=== PATIENT | male | born 1950 | race African-American/Black ===

== ENCOUNTER → 2020-12-08 10:34 | Outpatient (BNVA) | payer MEDICARE, MEDICAID, SELFPAY | PROVIDERS: PCP Internal Medicine Nephrology; Visit Provider Urology | DX: N40.0 Benign prostatic hyperplasia without lower urinary tract symptoms (principal); N52.01 Erectile dysfunction due to arterial insufficiency | CPT/HCPCS: 51798; 99212 ==

== ENCOUNTER → 2021-12-08 11:16 | Outpatient (BNVA) | payer MEDICARE, MEDICAID, SELFPAY | PROVIDERS: PCP Internal Medicine Nephrology; Visit Provider Urology | DX: N40.0 Benign prostatic hyperplasia without lower urinary tract symptoms (principal); N52.01 Erectile dysfunction due to arterial insufficiency | CPT/HCPCS: 51798; 99212 ==

== ENCOUNTER → 2022-04-12 11:14 | Outpatient (BNVA) | payer MEDICARE, SELFPAY | PROVIDERS: PCP Internal Medicine; Visit Provider Urology | DX: N40.0 Benign prostatic hyperplasia without lower urinary tract symptoms (principal); N52.01 Erectile dysfunction due to arterial insufficiency; Z79.899 Other long term (current) drug therapy | CPT/HCPCS: 51798; 99212 ==

== ENCOUNTER → 2022-10-23 09:39 | Outpatient (BNVA) | payer MEDICARE, SELFPAY | PROVIDERS: Visit Provider Nurse Practitioner Family | DX: N40.1 Benign prostatic hyperplasia with lower urinary tract symptoms (principal); R33.8 Other retention of urine; N52.01 Erectile dysfunction due to arterial insufficiency; Z79.899 Other long term (current) drug therapy | CPT/HCPCS: 51798; 99212 ==

== ENCOUNTER 2023-01-07 11:12 | Outpatient (AMB) | payer MEDICARE, SELFPAY ==
--- NOTE | 2023-01-07 11:24 | MHC.OFFVIS ---
Intake Intake Visit Reasons: 6w/PVR Intake Note: Patient is present for follow up PVR/Retention/BPH/Erectile Dysfunction Urology Medications: finasteride, sildenafil, tamsulosin Blood Thinner: none PVR: 109ml's Director Export Required: No Accompanied by: Self / Same As Patient Allergies No Known Allergies Allergy (Verified 10/23/22 10:01) Medication List - Last Reconciled 01/07/23 by WENDI OrtegaP- amlodipine 10 mg PO DAILY atorvastatin 40 mg PO DAILY empagliflozin (Jardiance) 10 mg PO DAILY finasteride 5 mg PO DAILY 90 days fluticasone propionate 50 mcg/actuation 1 spray intranasal BID hydralazine 10 mg PO BID lisinopril 10 mg PO DAILY sildenafil 100 mg PO DAILY PRN 90 days tamsulosin 0.4 mg PO BEDTIME 90 days HPI HPI Comments History of Present Illness Details Thaddeus is a very pleasant 72 year old male patient of Dr Mcfadden. He has a past medical history of GERD and hyperlipidemia. He presents to the office today for follow-up of his erectile dysfunction, BPH, and elevated PSA. In discussion with the patient today reports to be doing and feeling well. He reports compliance with finasteride 5 mg daily when Flomax 0.4 mg daily. In office urinalysis results reviewed with the patient today. PVR 109 mL. Discussed improvement in postvoid residual since last office visit which was noted to be approximately 215 mL. When asked he denies any urinary issues or concerns at this time. He reports to be happy with his current voiding parameters. Discussed affects and potential causes for incomplete bladder emptying. Patient otherwise denies urinary urgency, urinary frequency, incontinence, nocturia, hematuria, dysuria, foul smelling urine, changes to urinary stream, flank pain, fever, and or chills. He reports sildenafil to be working well for his erectile dysfunction and is requesting a refill. When asked he reports be happy with his current voiding parameters on mg of finasteride daily and Flomax 0.4 mg daily. He otherwise offers no issues or concerns at this time. Erectile dysfunction:? Sildenafil 100 mg is useful Discussed side effect of headache ?This was discussed ?Plan for yearly follow-up ?PSA 2017 3.6, 11/15 4.1, 11/16 4.2, 8/22 5.7, 04/19 3.3 24%, 10/19 3.0 ? Current treatment includes?Cialis/tadalafil.? Treatment side effects include?none.? Prior therapies include?oral medications.? At this time he experiences erections?are partial and adequate for vaginal penetration, that last until ejaculation, GEOVANNA 8-11 Moderate ED.? Nocturnal erections?do not occur.? Currently they are?in a stable relationship.? Associated problems? hypertension ?No ? diabetes ?No ? dyslipidemia ?Yes ? depression ?No ? stress ?No ? decreased libido ?No ? pelvic surgery ?No ? Overall he is satisfied with the current management.? [facility] Medical History Hyperlipidemia GERD (gastroesophageal reflux disease) Benign prostatic hyperplasia without lower urinary tract symptoms Surgical History History of surgery Review of Systems Const All systems reviewed & are unremarkable except as noted in HPI and below Reports as per HPI Eyes Reports no additional complaints ENT Reports no additional complaints Card Reports as per HPI Resp Reports no additional complaints GI Reports as per HPI Reports as per HPI Neuro Reports no additional complaints Psych Reports no additional complaints Endo Reports no additional complaints Alok/Lymph Reports no additional complaints Aller/Immun Reports no additional complaints Physical Exam Const General: cooperative, healthy appearing, comfortable, no acute distress, well developed, alert and awake Orientation/consciousness: patient oriented x3 Limitations: no limitations HEENT Head: Yes normal to inspection, Yes normocephalic and Yes atraumatic Ears: hearing grossly normal bilaterally Eyes General: appearance normal, both eyes and all related structures Neck Neck: Yes normal visual inspection and Yes trachea midline Chest Chest palpation & inspection: normal inspection of the chest Resp Effort & Inspection: normal respiratory effort and able to speak in complete sentences Cardio Rate: regular rate GI Inspection: Yes normal to inspection General: Yes no CVA tenderness Back/Spine/Pelvis Back: no CVA tenderness Skin General skin exam: no rashes or lesions noted Neuro General: patient oriented x3 Extrem General: Yes normal to inspection Psych Appearance: grossly normal and well kempt Mental Status: mental status grossly normal Speech and movement: Normal speech and movement present and Clear speech present Affect: normal affect Attitude: cooperative Thought process: Normal thought process present Thought content: Normal thought content present Insight: Fair insight present (Psych) Judgement: Fair judgement present (Psych) Office Procedures Post Void Residual Post Residual Void Post Void Residual (PVR): 109 56456-Pijv Void Residual by ultrasound Results AMB Urinalysis, Automated UA Leukoctes 0 Cheryl/uL Last Edit by Gwen Koehlersana on 01/07/23 12:07 UA Nitrite Last Edit by [facility] Koehlersana on 01/07/23 12:07 UA Urobilinogen 0.2 mg/dL Last Edit by Gwen Kimbrough on 01/07/23 12:07 UA Protein 30 mg/dL Last Edit by Gwen KoehlerShipster on 01/07/23 12:07 UA pH 6.0 Last Edit by Viralica [employer]akia[employer] on 01/07/23 12:07 UA Blood 0 Edwin/uL Last Edit by Texerebarbara Koehlerasna on 01/07/23 12:07 UA Specific [place] 1.015 Last Edit by [facility] on 01/07/23 12:07 UA Ketone Negative Last Edit by Viralica Zakiasana on 01/07/23 12:07 UA Bilirubin 0 mg/dL Last Edit by Viralica ZakiaShipster on 01/07/23 12:07 UA Glucose 500 mg/dL Last Edit by [facility] on 01/07/23 12:07 Results Reviewed Results Reviewed: Laboratory Last Values Urine pH (Auto) 6.0 01/07/23 11: Specific [place] (Auto) 1.015 01/07/23 11:27 Urine Protein (Auto) 30 mg/dL 01/07/23 11:27 Glucose (UA)(Auto) 500 mg/dL 01/07/23 11:27 Urine Ketones (Auto) Negative 01/07/23 11:27 Urine Blood (Auto) 0 Edwin/uL 01/07/23 11:27 Urine Bilirubin (Auto) 0 mg/dL 01/07/23 11:27 Urine Urobilinogen (Auto) 0.2 mg/dL 01/07/23 11:27 Leukocyte Esterase (Auto) 0 Cheryl/uL 01/07/23 11:27 Assessment & Plan Assessment & Plan (1) Incomplete bladder emptying: Code(s): R33.9 - Retention of urine, unspecified (2) Benign prostatic hyperplasia without lower urinary tract symptoms: Code(s): N40.0 - Benign prostatic hyperplasia without lower urinary tract symptoms (3) Erectile dysfunction due to arterial insufficiency: Code(s): N52.01 - Erectile dysfunction due to arterial insufficiency Plan In office urinalysis results reviewed with the patient today; as noted above. PVR 104 mL; improving since last office visit Continue finasteride 5 mg daily. Continue Flomax 0.4 mg daily. Discussed at length potential causes for incomplete bladder emptying. Patient reports be happy with current voiding parameters on 0.4 mg of Flomax daily and 5 mg of finasteride daily. Patient denies any bothersome urinary issues or concerns at this time. Refill provided on Sildenafil Will obtain PSA in 6 months Follow-up in 6 months with lab to be completed prior; or sooner with any issues, concerns, and or questions. Orders: Orders AMB Urinalysis Automated Today Z13.9 - Encounter for screening, unspecified US retroperitoneal comp Today N40.0 - Benign prostatic hyperplasia without lower urinary tract symptoms, R33.9 - Retention of urine, unspecified PSA,Total (Free>4and<10) 6 Months N40.0 - Benign prostatic hyperplasia without lower urinary tract symptoms AMB Post Void Residual by ultrasound Today R33.9 - Retention of urine, unspecified Medications: Changed From tamsulosin 0.4 mg PO BEDTIME 30 days 30 caps 1RF N40.1 - Benign prostatic hyperplasia with lower urinary tract symptoms, R35.1 - Nocturia To tamsulosin 0.4 mg PO BEDTIME 90 days 90 caps 2RF N40.1 - Benign prostatic hyperplasia with lower urinary tract symptoms, R35.1 - Nocturia Refilled sildenafil May take up to 2 tablets, administer 60 minutes before intended activity [id number] [facility] [id number] Member [id number] 100 mg PO DAILY 90 days PRN 30 tabs 5RF sexual activity N52.01 - Erectile dysfunction due to arterial insufficiency finasteride 5 mg PO DAILY 90 days 90 tabs 3RF N13.8 - Other obstructive and reflux uropathy, N40.0 - Benign prostatic hyperplasia without lower urinary tract symptoms, N40.1 - Benign prostatic hyperplasia with lower urinary tract symptoms, R33.9 - Retention of urine, unspecified Patient Instructions: The patient had an opportunity to ask questions regarding the treatment plan. All questions were answered. Physical exam, labs, and imaging were discussed and reviewed in detail. As well as risks, benefits, and discussion of treatment choices. No major barriers to understanding were identified. The patient expressed understanding and agreement with the above treatment plan. The patient was made aware they should contact our office by phone for worsening of their current condition, the appearance of new symptoms, or with any questions or concerns. Compliance is encouraged with any medications and follow up testing that is ordered. It is a privilege to be allowed the opportunity to participate in? your urological care.? Again, if you have any questions or concerns If you have any questions or concerns please do not hesitate to contact me. The office is [phone]. This note is constructed using voice recognition software. While every effort has been made to ensure accuracy treatment counselor errors may have been included. Yours sincerely, AUGUSTIN Ortega Coding Level of Care Code Est Pt Level 3 (35608) Diagnoses Incomplete bladder emptying R33.9 Benign prostatic hyperplasia without lower urinary tract symptoms N40.0 Erectile dysfunction due to arterial insufficiency N52.01 CPT Codes Post Residual Void - PVR CPT Code: 31591-Brke Void Residual by ultrasound ([id number])
== END 2023-01-07 12:18 | disposition home or self-care (01) ==
PROVIDERS: PCP Internal Medicine; Visit Provider Nurse Practitioner Family
DX: R33.9 Retention of urine, unspecified (principal); N40.0 Benign prostatic hyperplasia without lower urinary tract symptoms; N52.01 Erectile dysfunction due to arterial insufficiency
CPT/HCPCS: 99213

== ENCOUNTER → 2023-01-07 11:12 | Outpatient (BNVA) | payer MEDICARE, SELFPAY | PROVIDERS: PCP Internal Medicine; Visit Provider Nurse Practitioner Family | DX: N40.1 Benign prostatic hyperplasia with lower urinary tract symptoms (principal); R33.8 Other retention of urine; N52.01 Erectile dysfunction due to arterial insufficiency; Z79.899 Other long term (current) drug therapy | CPT/HCPCS: 51798; 81003; 99212 ==

== ENCOUNTER 2024-01-09 11:41 | Outpatient (AMB) | payer MEDICARE, SELFPAY ==
--- NOTE | 2024-01-09 11:46 | MHC.OFFVIS ---
Intake Visit Reasons: follow up/U/S/PSA Intake Note: Patient is present for follow up PVR/Retention/BPH/Erectile Dysfunction Urology Medications: finasteride, sildenafil, tamsulosin Blood Thinner: none PVR: 175ml's [employer] Required: No Accompanied by: Self / Same As Patient Allergies No Known Allergies Allergy (Verified 01/09/24 19:09) Medication List - Last Reconciled 01/09/24 by WENDI OrtegaP- amlodipine 10 mg PO DAILY atorvastatin 40 mg PO DAILY empagliflozin (Jardiance) 10 mg PO DAILY finasteride 5 mg PO DAILY 90 days fluticasone propionate 50 mcg/actuation 1 spray intranasal BID hydralazine 10 mg PO BID lisinopril 10 mg PO DAILY omeprazole 20 mg PO DAILY sildenafil 100 mg PO DAILY PRN 90 days tamsulosin 0.4 mg PO BEDTIME 90 days HPI Comments Details: Thaddeus is a very pleasant 73 year old male patient of Dr Alfaro. He has a past medical history of GERD and hyperlipidemia. He presents to the office today for follow-up of his erectile dysfunction, BPH, and elevated PSA. In discussion with the patient today reports to be doing and feeling well. He discusses having followed up with his PCP and will be following up with [facility] as this is closer to his home and referral was submitted. He currently denies any bothersome urinary issues or concerns. He reports compliance with finasteride 5 mg daily when Flomax 0.4 mg daily. In office urinalysis results reviewed with the patient today. PVR 175 mL. We discussed causes and affects of incomplete bladder emptying. When asked he denies urinary urgency, urinary frequency, incontinence, nocturia, hematuria, dysuria, foul smelling urine, changes to urinary stream, flank pain, fever, and or chills. He reports sildenafil to be working well for his erectile dysfunction and is requesting a refill. When asked he reports be happy with his current voiding parameters on mg of finasteride daily and Flomax 0.4 mg daily. Recent PSA results reviewed with the patient today 08/20 3.4. He otherwise offers no issues or concerns at this time. Erectile dysfunction:? Sildenafil 100 mg is useful Discussed side effect of headache ?This was discussed ?Plan for yearly follow-up ?PSA 2017 3.6, 11/15 4.1, 11/16 4.2, 12/18 5.7, 04/19 3.3 24%, 10/19 3.0 ? Current treatment includes?Cialis/tadalafil.? Treatment side effects include?none.? Prior therapies include?oral medications.? At this time he experiences erections?are partial and adequate for vaginal penetration, that last until ejaculation, GEOVANNA 8-11 Moderate ED.? Nocturnal erections?do not occur.? Currently they are?in a stable relationship.? Associated problems? hypertension ?No ? diabetes ?No ? dyslipidemia ?Yes ? depression ?No ? stress ?No ? decreased libido ?No ? pelvic surgery ?No ? Overall he is satisfied with the current management.? [facility] Medical History Hyperlipidemia GERD (gastroesophageal reflux disease) Benign prostatic hyperplasia without lower urinary tract symptoms Surgical History History of surgery Review of Systems Const All systems reviewed & are unremarkable except as noted in HPI and below Reports as per HPI Eyes Reports no additional complaints ENT Reports no additional complaints Card Reports as per HPI Resp Reports no additional complaints GI Reports as per HPI Reports as per HPI Neuro Reports no additional complaints Psych Reports no additional complaints Endo Reports no additional complaints Alok/Lymph Reports no additional complaints Aller/Immun Reports no additional complaints Physical Exam Const General: cooperative, healthy appearing, comfortable, no acute distress, well developed, alert and awake Orientation/consciousness: patient oriented x3 Limitations: no limitations HEENT Head: Yes normal to inspection, Yes normocephalic and Yes atraumatic Ears: hearing grossly normal bilaterally Eyes General: appearance normal, both eyes and all related structures Neck Neck: Yes normal visual inspection and Yes trachea midline Chest Chest palpation & inspection: normal inspection of the chest Resp Effort & Inspection: normal respiratory effort and able to speak in complete sentences Cardio Rate: regular rate GI Inspection: Yes normal to inspection General: Yes no CVA tenderness Back/Spine/Pelvis Back: no CVA tenderness Skin General skin exam: no rashes or lesions noted Neuro General: patient oriented x3 Extrem General: Yes normal to inspection Psych Appearance: grossly normal and well kempt Mental Status: mental status grossly normal Speech and movement: Normal speech and movement present and Clear speech present Affect: normal affect Attitude: cooperative Thought process: Normal thought process present Thought content: Normal thought content present Insight: Fair insight present (Psych) Judgement: Fair judgement present (Psych) Office Procedures Post Void Residual Post Residual Void Post Void Residual (PVR): 175 40659-Noml Void Residual by ultrasound Results AMB Urinalysis, Automated UA Leukoctes 0 Cheryl/uL Last Edit by Gwen Kimbrough on 01/09/24 12:03 UA Nitrite Last Edit by Gwen Kimbrough on 01/09/24 12:03 UA Urobilinogen 0.2 mg/dL Last Edit by Gwen Kimbrough on 01/09/24 12:03 UA Protein 15 mg/dL Last Edit by [employer] [facility] on 01/09/24 12:03 UA pH 7.5 Last Edit by Gwen Kimbrough on 01/09/24 12:03 UA Blood 0 Edwin/uL Last Edit by Gwen [facility] on 01/09/24 12:03 UA Specific [place] 1.010 Last Edit by [employer] [facility] on 01/09/24 12:03 UA Ketone Negative Last Edit by Gwen Kimbrough on 01/09/24 12:03 UA Bilirubin 0 mg/dL Last Edit by [employer] [facility] on 01/09/24 12:03 UA Glucose 500 mg/dL Last Edit by [employer] on 01/09/24 12:03 Results Reviewed Results Reviewed: Laboratory Last Values Urine pH (Auto) 7.5 01/09/24 12:01 Specific [place] (Auto) 1.010 01/09/24 12:01 Urine Protein (Auto) 15 mg/dL 01/09/24 12:01 Glucose (UA)(Auto) 500 mg/dL 01/09/24 12:01 Urine Ketones (Auto) Negative 01/09/24 12:01 Urine Blood (Auto) 0 Edwin/uL 01/09/24 12:01 Urine Bilirubin (Auto) 0 mg/dL 01/09/24 12:01 Urine Urobilinogen (Auto) 0.2 mg/dL 01/09/24 12:01 Leukocyte Esterase (Auto) 0 Cheryl/uL 01/09/24 12:01 Assessment & Plan Assessment & Plan (1) Benign prostatic hyperplasia without lower urinary tract symptoms: Code(s): N40.0 - Benign prostatic hyperplasia without lower urinary tract symptoms Category: Medical (2) Erectile dysfunction due to arterial insufficiency: Code(s): N52.01 - Erectile dysfunction due to arterial insufficiency Category: Medical (3) Incomplete bladder emptying: Code(s): R33.9 - Retention of urine, unspecified Category: Medical Plan In office urinalysis results reviewed with the patient today; as noted above. PVR 170 mL. Discussed causes and affects of incomplete bladder emptying. Discussed increase in Flomax verses trial of other alpha-mela to assist with incomplete bladder emptying verses lifestyle modifications Patient currently does not feel any bothersome urinary issues or concerns. He reports be happy with current voiding parameters. Discussed attempting to sit when voiding to relax pelvis to assist with emptying bladder. He denies any bothersome urinary issues or concerns. Refills provided. Discussed signing medical release form to send urology records to [facility] for continuity of care. Recent PSA results reviewed with the patient today; as noted above. Follow-up with new urologist as planned Orders: Orders AMB Urinalysis Automated 01/09/24 Z13.9 - Encounter for screening, unspecified AMB Post Void Residual by ultrasound 01/09/24 R33.9 - Retention of urine, unspecified Medications: Changed From sildenafil May take up to 2 tablets, administer 60 minutes before intended activity [id number] [facility] [id number] Member [id number] 100 mg PO DAILY 90 days PRN 30 tabs 5RF sexual activity N52.01 - Erectile dysfunction due to arterial insufficiency To sildenafil administer 60 minutes before intended activity [id number] [facility] [id number] Member [id number] 100 mg PO .PRN 90 days PRN 30 tabs 5RF sexual activity N52.01 - Erectile dysfunction due to arterial insufficiency Refilled finasteride 5 mg PO DAILY 90 days 90 tabs 3RF N13.8 - Other obstructive and reflux uropathy, N40.0 - Benign prostatic hyperplasia without lower urinary tract symptoms, N40.1 - Benign prostatic hyperplasia with lower urinary tract symptoms, R33.9 - Retention of urine, unspecified tamsulosin 0.4 mg PO BEDTIME 90 days 90 caps 2RF N40.1 - Benign prostatic hyperplasia with lower urinary tract symptoms, R35.1 - Nocturia Patient Instructions: The patient had an opportunity to ask questions regarding the treatment plan. All questions were answered. Physical exam, labs, and imaging were discussed and reviewed in detail. As well as risks, benefits, and discussion of treatment choices. No major barriers to understanding were identified. The patient expressed understanding and agreement with the above treatment plan. The patient was made aware they should contact our office by phone for worsening of their current condition, the appearance of new symptoms, or with any questions or concerns. Compliance is encouraged with any medications and follow up testing that is ordered. It is a privilege to be allowed the opportunity to participate in? your urological care.? Again, if you have any questions or concerns If you have any questions or concerns please do not hesitate to contact me. The office is [phone]. This note is constructed using voice recognition software. While every effort has been made to ensure accuracy resident physician errors may have been included. Yours sincerely, AUGUSTIN Ortgea Coding Level of Care Code Est Pt Level 3 (06957) Complex EM visit Add On G2211 Diagnoses Benign prostatic hyperplasia without lower urinary tract symptoms N40.0 Erectile dysfunction due to arterial insufficiency N52.01 Incomplete bladder emptying R33.9 CPT Codes Post Residual Void - PVR CPT Code: 41290-Nuij Void Residual by ultrasound ([id number])
== END 2024-01-09 12:15 | disposition home or self-care (01) ==
PROVIDERS: PCP Internal Medicine; Visit Provider Nurse Practitioner Family
DX: N40.0 Benign prostatic hyperplasia without lower urinary tract symptoms (principal); N52.01 Erectile dysfunction due to arterial insufficiency; R33.9 Retention of urine, unspecified; Z13.9 Encounter for screening, unspecified
CPT/HCPCS: 99213; G2211

== ENCOUNTER → 2024-01-09 11:41 | Outpatient (BNVA) | payer MEDICARE, SELFPAY | PROVIDERS: PCP Internal Medicine; Visit Provider Nurse Practitioner Family | DX: N40.0 Benign prostatic hyperplasia without lower urinary tract symptoms (principal); N52.01 Erectile dysfunction due to arterial insufficiency; R33.9 Retention of urine, unspecified | CPT/HCPCS: 51798; 81003; 99212 ==